=== PATIENT | female | born 1955 | race Caucasian/White ===

== ENCOUNTER 2019-07-03 16:58 | Emergency (ER) | payer SELFPAY ==
[~2019-07-03] VITALS: Ht 158 cm; Wt 44.0 kg
[~2019-07-03 16:58] MED LIST changes: -ASPI-999; -MONT10TA24
[2019-07-03] MEDS ORDERED: ASPI-999 (17:21)
[2019-07-03] MEDS ORDERED: MONT10TA24 (17:21)
--- NOTE | 2019-07-03 17:21 | ED Dyspnea ---
General Stated Complaint: PNEUMONIA Source of Information: Patient Exam Limitations: No Limitations History of Present Illness Date Seen by Provider: Jul 03, 2019 Time Seen by Provider: 17:18 Initial Comments To ER by private vehicle with reports of pneumonia. Patient saw [facility], in [facility] this morning for body aches and general malaise. She was given a pneumonia vaccine and started on cholesterol medication one week ago, there was concern for rhabdomyolysis, outpatient labs were ordered. Her CK was normal but she had a 20,000 white count. She had a chest x-ray showing a right lower lobe infiltrate. Her blood pressure in the clinic was 80 systolic, heart rate 120. She has a long-standing history of COPD, she does not wear oxygen at home. She does not feel any more short of breath than usual that she does have some right anterior lower chest wall pain for about a week and her reports that she seems to be breathing harder for one week Timing/Duration: 1 Week Severity: Moderate Activities at Onset: None Associated Symptoms: Cough Allergies and Home Medications Allergies Coded Allergies: No Known Drug Allergies (Unverified , 05/10/10) Patient Home Medication List Home Medication List Reviewed: Yes Review of Systems Review of Systems Constitutional: see HPI, malaise, weakness EENTM: see HPI Respiratory: see HPI, cough, short of breath (chronic and unchanged) Cardiovascular: no symptoms reported Genitourinary: no symptoms reported Musculoskeletal: no symptoms reported Skin: no symptoms reported Psychiatric/Neurological: No Symptoms Reported Endocrine: No Symptoms Reported Hematologic/Lymphatic: No Symptoms Reported Past Webtqne-Vujxco-Tjicvn Hx Patient Social History Recent Foreign Travel: No Contact w/Someone Who Travel: No Immunizations Up To Date Date of Influenza Vaccine: Jun 07, 2011 Past Medical History Reproductive Disorders: No Physical Exam Vital Signs Vital Signs - First Documented 07/03/19 07/03/19 17:03 17:25 Temp 36.6 Pulse 112 Resp 26 B/P (MAP) 96/66 (76) Pulse Ox 93 O2 Delivery Room Air O2 Flow Rate 1.00 Capillary Refill : Height, Weight, BMI Height: '" Weight: lbs. oz. kg; BMI Method:Stated General Appearance: No Apparent Distress, WD/WN, Thin HEENT: PERRL/EOMI, TMs Normal Neck: Full Range of Motion, Normal Inspection Respiratory: No Respiratory Distress, Accessory Muscle Use (chronic accessory muscle use, barrel chested. 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 [employer], her bleeding today appears the same as it did while she was employed at [employer] last year.) Cardiovascular: Normal Peripheral Pulses, Tachycardia Gastrointestinal: Normal Bowel Sounds, Non Tender, Soft Neurologic/Psychiatric: Alert, Oriented x3 Skin: Normal Color, Warm/Dry Focused Exam Lactate Level 07/03/19 17:15: Lactic Acid Level 0.70 Lactic Acid Level Laboratory Tests Test 07/03/19 17:15 Lactic Acid Level 0.70 MMOL/L (0.50-2.00) Progress/Results/Core Measures Results/Orders Lab Results Laboratory Tests Test 07/03/19 17:15 Range/Units White Blood Count 20.4 H 4.3-11.0 10^3/uL Red Blood Count 4.45 4.35-5.85 10^6/uL Hemoglobin 14.3 11.5-16.0 G/DL Hematocrit 41 35-52 % Mean Corpuscular Volume 92 80-99 FL Mean Corpuscular Hemoglobin 32 25-34 PG Mean Corpuscular Hemoglobin Concent 35 32-36 G/DL Red Cell Distribution Width 13.8 10.0-14.5 % Platelet Count 231 130-400 10^3/uL Mean Platelet Volume 9.5 7.4-10.4 FL Neutrophils (%) (Auto) 76 H 42-75 % Lymphocytes (%) (Auto) 16 12-44 % Monocytes (%) (Auto) 7 0-12 % Eosinophils (%) (Auto) 1 0-10 % Basophils (%) (Auto) 0 0-10 % Neutrophils # (Auto) 15.5 H 1.8-7.8 X 10^3 Lymphocytes # (Auto) 3.3 1.0-4.0 X 10^3 Monocytes # (Auto) 1.4 H 0.0-1.0 X 10^3 Eosinophils # (Auto) 0.1 0.0-0.3 10^3/uL Basophils # (Auto) 0.1 0.0-0.1 10^3/uL Neutrophils % (Manual) 76 % Lymphocytes % (Manual) 19 % Monocytes % (Manual) 5 % Blood Morphology Comment NORMAL D-Dimer 1.04 H 0.00-0.49 UG/ML Sodium Level 138 135-145 MMOL/L Potassium Level 4.1 3.6-5.0 MMOL/L Chloride Level 108 H 98-107 MMOL/L Carbon Dioxide Level 21 21-32 MMOL/L Anion Gap 9 5-14 MMOL/L Blood Urea Nitrogen 10 7-18 MG/DL Creatinine 0.73 0.60-1.30 MG/DL Estimat Glomerular Filtration Rate > 60 BUN/Creatinine Ratio 14 Glucose Level 84 70-105 MG/DL Lactic Acid Level 0.70 0.50-2.00 MMOL/L Calcium Level 9.5 8.5-10.1 MG/DL Corrected Calcium 9.5 8.5-10.1 MG/DL Total Bilirubin 0.6 0.1-1.0 MG/DL Aspartate Amino Transf (AST/SGOT) 13 5-34 U/L Alanine Aminotransferase (ALT/SGPT) 12 0-55 U/L Alkaline Phosphatase 78 40-136 U/L Total Protein 7.0 6.4-8.2 GM/DL Albumin 4.0 3.2-4.5 GM/DL My Orders Orders - [employer] Cbc With Automated Diff (07/03/19 17:00) Comprehensive Metabolic Panel (07/03/19 17:00) Blood Culture (07/03/19 17:00) Lactic Acid Analyzer (07/03/19 17:00) Fibrin Degradation Products (07/03/19 17:00) Chest 1 View, Ap/Pa Only (07/03/19 17:00) Ed Iv/Invasive Line Start (07/03/19 17:00) Ns Iv 1000 Ml (Sodium Chloride 0.9%) (07/03/19 17:30) Manual Differential (07/03/19 17:15) Ct Angio Chest W (07/03/19 17:51) Iohexol Injection (Omnipaque 350 Mg/Ml 1 (07/03/19 18:15) Received Contrast (Hold Metformin- Contr (07/03/19 18:15) Ns (Ivpb) (Sodium Chloride 0.9% Ivpb Bag (07/03/19 18:15) Piperacillin Sodium/Tazobactam (Zosyn Vi (07/03/19 18:45) Levofloxacin Tablet (Levaquin Tablet) (07/03/19 19:15) Medications Given in ED Current Medications Medications Dose Ordered Sig/Bela Route Start Time Stop Time Status Last Admin Dose Admin Iohexol 100 ml ONCE ONCE IV 07/03/19 18:15 07/03/19 18:16 DC 07/03/19 18:30 50 ML Piperacillin Sod/ Tazobactam Sod 4.5 gm/Sodium Chloride 100 ml @ 200 mls/hr ONCE ONCE IV 07/03/19 18:45 07/03/19 19:14 07/03/19 18:43 200 MLS/HR Sodium Chloride 100 ml ONCE ONCE IV 07/03/19 18:15 07/03/19 18:16 DC 07/03/19 18:30 80 ML Vital Signs/I&O 07/03/19 07/03/19 17:03 17:25 Temp 36.6 Pulse 112 Resp 26 B/P (MAP) 96/66 (76) Pulse Ox 93 95 O2 Delivery Room Air Nasal Cannula O2 Flow Rate 1.00 Diagnostic Imaging Diagonstic Imaging: Xray Plain Films/CT/US/NM/MRI: chest Comments NAME: KEV ALFARO Kurt MED REC#: [id number] PT STATUS: REG ER : 1955 PHYSICIAN: [employer] ADMIT DATE: 07/03/19/ER Draft POSDate of Exam:07/03/19 CHEST 1 VIEW, AP/PA ONLY EXAM: CHEST 1 VIEW, AP/PA ONLY. INDICATION: Right anterior chest pain. COMPARISON: 09/01/2011. FINDINGS: Normal heart size and central pulmonary vascularity. Hyperinflation. Calcified aorta. New airspace consolidation in the right lung base. No pleural effusion or pneumothorax. No acute osseous findings. IMPRESSION: New airspace consolidation in the right lung base. Recommend follow-up to resolution. Dictated on workstation # [id number] Dict: 07/03/19 1733 Trans: 07/03/19 1735 [facility] [id number] Interpreted by: ALINA GIRON MD Electronically signed by: Departure Communication (Admissions) We are on diversion here, no ICU beds available. I spoke with [facility] Dr. Browne who accepted the patient in transfer, would like Levaquin given in addition to the Zosyn for atypical coverage. The patient herself agrees to go to [place] but because of lack of insurance she refuses to be transported by EMS, states she will only go to her and drive her. I discussed with her the risks of that including worsening of condition in route, septic shock, , she states "oh well this bill would kill me anyway". She agrees to sign a refusal of services form. Impression Primary Impression: Pneumonia Qualified Codes: J18.1 - Lobar pneumonia, unspecified organism Additional Impressions: COPD exacerbation Sepsis Qualified Codes: A41.9 - Sepsis, unspecified organism Disposition: XFER SHT-TRM HOSP Condition: Stable Transfer Transfer Reason: Diversion Time Spoke to Accepting Phy: 19:13 Departure-Patient Inst. Referrals: NO,LOCAL PHYSICIAN (PCP/Family) Primary Care Physician [employer] Jul 03, 2019 17:21 POS
[2019-07-03 17:24] LABS: BASOPHILS # (AUTO) 0.1 10^3/uL (0.0-0.1); BASOPHILS % (AUTO) 0 % (0-10); EOSINOPHILS # (AUTO) 0.1 10^3/uL (0.0-0.3); EOSINOPHILS % (AUTO) 1 % (0-10); HEMATOCRIT 41 % (35-52); HEMOGLOBIN 14.3 G/DL (11.5-16.0); LYMPHOCYTES # (AUTO) 3.3 X 10^3 (1.0-4.0); LYMPHOCYTES % (AUTO) 16 % (12-44); MEAN CORPUSCULAR HEMOGLOBIN 32 PG (25-34); MEAN CORPUSCULAR HGB CONC 35 G/DL (32-36); MEAN CORPUSCULAR VOLUME 92 FL (80-99); MEAN PLATELET VOLUME 9.5 FL (7.4-10.4); MONOCYTES # (AUTO) 1.4 X 10^3 (0.0-1.0); MONOCYTES % (AUTO) 7 % (0-12); NEUTROPHILS # (AUTO) 15.5 X 10^3 (1.8-7.8); NEUTROPHILS % (AUTO) 76 % (42-75); PLATELET COUNT 231 10^3/uL (130-400); RED CELL DISTRIBUTION WIDTH 13.8 % (10.0-14.5); WHITE BLOOD COUNT 20.4 10^3/uL (4.3-11.0)
[2019-07-03] MEDS ORDERED: NS IV 1000 ML 1,000 ML IV SCH (17:30)
--- NOTE | 2019-07-03 17:35 | Diagnostic Imaging Report ---
EXAM: CHEST 1 VIEW, AP/PA ONLY. INDICATION: Right anterior chest pain. COMPARISON: 09/01/2011. FINDINGS: Normal heart size and central pulmonary vascularity. Hyperinflation. Calcified aorta. New airspace consolidation in the right lung base. No pleural effusion or pneumothorax. No acute osseous findings. IMPRESSION: New airspace consolidation in the right lung base. Recommend follow-up to resolution. Dictated by: Dictated on workstation # [id number]
[2019-07-03 17:44] LABS: ALANINE AMINOTRANSFERASE 12 U/L (0-55); ALKALINE PHOSPHATASE 78 U/L (40-136); BILIRUBIN,TOTAL 0.6 MG/DL (0.1-1.0); BUN/CREATININE RATIO 14; CALCIUM 9.5 MG/DL (8.5-10.1); CARBON DIOXIDE 21 MMOL/L (21-32); CHLORIDE 108 MMOL/L (98-107); CREATININE SERUM 0.73 MG/DL (0.60-1.30); GFR ESTIMATED > 60; GLUCOSE 84 MG/DL (70-105); POTASSIUM 4.1 MMOL/L (3.6-5.0); SODIUM 138 MMOL/L (135-145)
[2019-07-03 17:48] LABS: LYMPHOCYTES % (MANUAL) 19 %; MONOCYTES % (MANUAL) 5 %; NEUTROPHILS % (MANUAL) 76 %; RBC MORPH NORMAL
[2019-07-03] MEDS ORDERED: HOLD METFORMIN - RECEIVED CONTRAST 20 ML VIAL IV SCH (18:15)
[2019-07-03] MEDS ORDERED: IOHEXOL 350 MG/ML 100 ML (OMNIPAQUE 350) VIAL IV ONE (18:15)
[2019-07-03] MEDS ORDERED: NS 100 ML (IVPB) BAG IV ONE (18:15)
--- NOTE | 2019-07-03 18:42 | Diagnostic Imaging Report ---
PROCEDURE: CT angiography of the chest with contrast. TECHNIQUE: Multiple contiguous axial images were obtained through the chest after uneventful bolus administration of intravenous contrast. 3D reconstructed CTA MIP acquisitions were also performed. Auto Exposure Controls were utilized during the CT exam to meet ALARA standards for radiation dose reduction. INDICATION: Pneumonia, aching all over. COMPARISON STUDY: Chest radiograph from earlier today. CT scan of the abdomen from 2010. FINDINGS: The heart size is normal. No pleural or pericardial effusions are identified. There is no abnormal adenopathy. Arterial sclerosis is present without any significant stenosis of the aorta or great vessels. No significant calcifications are seen in the coronary arteries. No large or central pulmonary emboli are present. Smaller vessels are not well opacified. Infiltrates are present in the base of the right middle lobe and also within the posterior aspect of the right lower lobe. Moderate infiltrates are present in the left lung base which is partially atelectasis. These are fairly confluent, and follow-up exam to exclude an underlying mass within these is recommended. Visualized portions of the abdomen appear unremarkable. The osseous structures demonstrate minimal degenerative changes. IMPRESSION: 1. COPD changes are present with bilateral pulmonary infiltrates, right greater than left. These are mainly in the lung bases and greatest in the base of the right middle lobe. Recommend follow-up radiograph to exclude a mass within the areas of infiltrates. 2. There is mild arterial sclerosis. Dictated by: Dictated on workstation # [id number]
[2019-07-03] MEDS ORDERED: PIPERACILLIN SODIUM/TAZOBACTAM 4.5 GM in NS (IVPB) 100 ML IV ONE (18:45)
[2019-07-03] MEDS ORDERED: LEVOFLOXACIN 750 MG TAB (LEVAQUIN) PO ONE (19:15)
[2019-07-03 19:45] VITALS: BP 103/64
== END 2019-07-03 19:45 | disposition short-term general hospital (02) ==
LOC: EDUNIT# 16:58 → ER 17:00
DX: A41.9 Sepsis, unspecified organism (principal); J18.9 Pneumonia, unspecified organism; J44.1 Chronic obstructive pulmonary disease with (acute) exacerbation; J44.0 Chronic obstructive pulmonary disease with (acute) lower respiratory infection
CPT/HCPCS: 36415; 71045; 71275; 80053; 83605; 85007; 85027; 85379; 87040; 96361; 96365

== ENCOUNTER → 2019-07-03 | Outpatient (CLI) | payer OTHER ==
[~2019-07-03] MED LIST: ASPI-999; CIPR500S2 PO; LORA-794 PO; MECL-124 PO; METR500T PO; MONT10TA24; NAPR-243 PO
[2019-07-03 13:34] LABS: BASOPHILS # (AUTO) 0.1 10^3/uL (0.0-0.1); BASOPHILS % (AUTO) 0 % (0-10); EOSINOPHILS # (AUTO) 0.1 10^3/uL (0.0-0.3); EOSINOPHILS % (AUTO) 0 % (0-10); HEMATOCRIT 43 % (35-52); HEMOGLOBIN 14.8 G/DL (11.5-16.0); LYMPHOCYTES # (AUTO) 3.1 X 10^3 (1.0-4.0); LYMPHOCYTES % (AUTO) 14 % (12-44); MEAN CORPUSCULAR HEMOGLOBIN 31 PG (25-34); MEAN CORPUSCULAR HGB CONC 35 G/DL (32-36); MEAN CORPUSCULAR VOLUME 91 FL (80-99); MEAN PLATELET VOLUME 9.3 FL (7.4-10.4); MONOCYTES # (AUTO) 1.5 X 10^3 (0.0-1.0); MONOCYTES % (AUTO) 7 % (0-12); NEUTROPHILS % (AUTO) 79 % (42-75); PLATELET COUNT 240 10^3/uL (130-400); RED CELL DISTRIBUTION WIDTH 14.1 % (10.0-14.5); WHITE BLOOD COUNT 22.8 10^3/uL (4.3-11.0)
[2019-07-03 13:53] LABS: ALANINE AMINOTRANSFERASE 12 U/L (0-55); ALBUMIN 4.1 GM/DL (3.2-4.5); ALKALINE PHOSPHATASE 79 U/L (40-136); BILIRUBIN,TOTAL 0.6 MG/DL (0.1-1.0); BUN/CREATININE RATIO 13; CALCIUM 9.6 MG/DL (8.5-10.1); CARBON DIOXIDE 23 MMOL/L (21-32); CHLORIDE 107 MMOL/L (98-107); CREATINE KINASE 87 U/L (29-168); CREATININE SERUM 0.79 MG/DL (0.60-1.30); GFR ESTIMATED > 60; GLUCOSE 93 MG/DL (70-105); PHOSPHORUS 2.8 MG/DL (2.3-4.7); POTASSIUM 4.2 MMOL/L (3.6-5.0); SODIUM 139 MMOL/L (135-145); TOTAL PROTEIN 7.1 GM/DL (6.4-8.2); URIC ACID 3.2 MG/DL (2.6-7.2)
[2019-07-03 14:00] LABS: BAND NEUTROPHILS 2 %; BASOPHILS % (MANUAL) 0 %; EOSINOPHILS % (MANUAL) 0 %; LYMPHOCYTES % (MANUAL) 17 %; MONOCYTES % (MANUAL) 5 %; NEUTROPHILS % (MANUAL) 76 %; RBC MORPH NORMAL
== END ==
LOC: LAB 13:07
PROVIDERS: ATTEND Nurse Practitioner Family
DX: M79.10 Myalgia, unspecified site (principal)
CPT/HCPCS: 36415; 80053; 82550; 84100; 84550; 85007; 85027

== ENCOUNTER 2022-02-16 15:49 | Emergency (ER) | payer MEDICAID, OTHER ==
[~2022-02-16] VITALS: Ht 152 cm; Wt 34.9 kg
[~2022-02-16 15:49] MED LIST changes: +ASPI-999; +MONT-40
--- NOTE | 2022-02-16 16:25 | ED Cough/URI ---
General Chief Complaint: Respiratory Problems Stated Complaint: SOB Nursing Triage Note: SENT OVER FROM DR SARAVIA FOR SOA AND BACK PAIN. PT HAS A HX OF COPD AND PNEUMONIA. Source: patient Exam Limitations: no limitations History of Present Illness Date Seen by Provider: Feb 16, 2022 Time Seen by Provider: 16:20 Initial Comments Patient is a 66-year-old female with a history of COPD who presents the ED with back pain, shortness of breath. Patient states yesterday evening she started having episode of shortness of breath difficulty breathing. This lasted about an hour. Typically occurs when she becomes anxious or after she takes a medication to help with her weight gain. She felt some shortness of breath today went to her primary care physician Dr. Saravia she was complaining of back pain and shortness of breath. Was given a steroid shot and a breathing treatment and was sent to the ED for further evaluation. Patient reports some mild chest discomfort but denies of any worsening pains. She states she has intermittent chest pain with no history of coronary artery disease, CHF. She is mainly complaining of her mid back pain secondary to her coughing fit last night. She does use Spiriva, Symbicort and nebulizer treatments at home. She has had similar episodes in the past but concern for possible pneumonia. Denies fever, chills, nausea vomiting, diarrhea. She denies of any specific cough. Patient wears 2 L of oxygen at home daily. Allergies and Home Medications Allergies Coded Allergies: No Known Drug Allergies (Unverified , 05/10/10) Patient Home Medication List Home Medication List Reviewed: Yes Aspirin (Aspirin) 81 Mg Tab.chew, (Reported) Entered as Reported by: PATEL MORRISON on 07/03/191720 Azithromycin (Azithromycin) 250 Mg Tablet, 250 MG PO UD Prescribed by: GURWINDER GONZALEZ on 02/16/22 174 Montelukast Sodium (Montelukast Sodium) 10 Mg Tablet, (Reported) Entered as Reported by: PATEL MORRISON on 07/03/191720 Prednisone (Prednisone) 20 Mg Tab, 20 MG PO DAILY Prescribed by: GURWINDER GONZALEZ on 02/16/22 1740 Review of Systems Review of Systems Constitutional: No chills, No diaphoresis, No malaise, No weakness EENTM: No blurred vision Respiratory: No cough; short of breath Cardiovascular: chest pain Gastrointestinal: No abdominal pain, No diarrhea, No nausea, No vomiting Genitourinary: No decreased output, No discharge Musculoskeletal: back pain; No joint pain Skin: No change in color, No change in hair/nails All Other Systems Reviewed Negative Unless Noted: Yes Past Asltkbu-Mqbbom-Vtaixs Hx Patient Social History Tobacco Use?: Yes Tobacco type used: Cigarettes Smoking Status: Current Everyday Smoker Substance use?: No Alcohol Use?: No Pt feels they are or have been: Unable to obtain Immunizations Up To Date Tetanus Booster (TDap): Unknown Influenza Vaccine Up-to-Date: No; Not Current Seasonal Allergies Seasonal Allergies: Yes Past Medical History Surgeries: Yes Hysterectomy Respiratory: Yes Pneumonia, COPD Cardiac: Yes High Cholesterol Neurological: No Reproductive Disorders: No 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 oz. kg; 15.00 BMI Method:Stated General Appearance: WD/WN, no apparent distress Eyes: Bilateral Eye Normal Inspection, Bilateral Eye PERRL, Bilateral Eye EOMI, Bilateral Eye Abnormal EOM HEENT: PERRL/EOMI, normal ENT inspection, TMs normal, pharynx normal Neck: non-tender, full range of motion, supple Respiratory: chest non-tender, no respiratory distress, no accessory muscle use, wheezing Cardiovascular: regular rate, rhythm, no edema, no gallop, no JVD Gastrointestinal: normal bowel sounds, non tender, soft, no organomegaly Extremities: normal range of motion, non-tender, normal inspection, no pedal edema Neurologic/Psychiatric: credit rating checker II-XII nml as tested Bilateral thoracic paraspinal muscle tenderness. No thoracic, lumbar midline tenderness Progress/Results/Core Measures Suspected Sepsis SIRS Temperature: Pulse: 98 Respiratory Rate: 16 Laboratory Tests 02/16/22 16:30: White Blood Count 11.8H Blood Pressure 147 /76 Mean: 99 Laboratory Tests 02/16/22 16:30: Creatinine 0.70, Platelet Count 274, Total Bilirubin 0.5 Results/Orders Lab Results Laboratory Tests Test 02/16/22 16:30 02/16/22 16:35 Range/Units White Blood Count 11.8 H 4.3-11.0 10^3/uL Red Blood Count 4.58 3.80-5.11 10^6/uL Hemoglobin 14.3 11.5-16.0 g/dL Hematocrit 41 35-52 % Mean Corpuscular Volume 90 80-99 fL Mean Corpuscular Hemoglobin 31 25-34 pg Mean Corpuscular Hemoglobin Concent 35 32-36 g/dL Red Cell Distribution Width 13.2 10.0-14.5 % Platelet Count 274 130-400 10^3/uL Mean Platelet Volume 9.1 9.0-12.2 fL Immature Granulocyte % (Auto) 0 % Neutrophils (%) (Auto) 78 H 42-75 % Lymphocytes (%) (Auto) 15 12-44 % Monocytes (%) (Auto) 5 0-12 % Eosinophils (%) (Auto) 1 0-10 % Basophils (%) (Auto) 1 0-10 % Neutrophils # (Auto) 9.2 H 1.8-7.8 10^3/uL Lymphocytes # (Auto) 1.8 1.0-4.0 10^3/uL Monocytes # (Auto) 0.6 0.0-1.0 10^3/uL Eosinophils # (Auto) 0.1 0.0-0.3 10^3/uL Basophils # (Auto) 0.1 0.0-0.1 10^3/uL Immature Granulocyte # (Auto) 0.1 0.0-0.1 10^3/uL Sodium Level 136 135-145 MMOL/L Potassium Level 4.0 3.6-5.0 MMOL/L Chloride Level 102 98-107 MMOL/L Carbon Dioxide Level 23 21-32 MMOL/L Anion Gap 11 5-14 MMOL/L Blood Urea Nitrogen 13 7-18 MG/DL Creatinine 0.70 0.60-1.30 MG/DL Estimat Glomerular Filtration Rate 97 BUN/Creatinine Ratio 19 Glucose Level 100 70-105 MG/DL Calcium Level 9.3 8.5-10.1 MG/DL Corrected Calcium 9.1 8.5-10.1 MG/DL Total Bilirubin 0.5 0.1-1.0 MG/DL Aspartate Amino Transf (AST/SGOT) 18 5-34 U/L Alanine Aminotransferase (ALT/SGPT) 18 0-55 U/L Alkaline Phosphatase 46 40-136 U/L Troponin I < 0.028 <0.028 NG/ML B-Type Natriuretic Peptide 20.4 <100.0 PG/ML Total Protein 7.0 6.4-8.2 GM/DL Albumin 4.3 3.2-4.5 GM/DL Influenza Type A (RT-PCR) Not Detected Not Detecte Influenza Type B (RT-PCR) Not Detected Not Detecte SARS-CoV-2 RNA (RT-PCR) Not Detected Not Detecte My Orders Orders - HAILEY PITTMAN Cbc With Automated Diff (02/16/22 16:18) Comprehensive Metabolic Panel (02/16/22 16:18) Bnp [place] (02/16/22 16:18) Troponin I [place] (02/16/22 16:18) Covid 19 Inhouse Test (02/16/22 16:18) Influenza A And B By Pcr (02/16/22 16:18) Iv/Invasive Line Insertion .IV start (02/16/22 16:18) Ekg Tracing (02/16/22 16:18) Chest 1 View, Ap/Pa Only (02/16/22 16:18) Vital Signs/I&O 02/16/22 02/16/22 02/16/22 15:50 16:00 16:00 Temp 36.3 Pulse 98 Resp 16 B/P (MAP) 147/76 (99) Pulse Ox 92 97 O2 Delivery Nasal Cannula Nasal Cannula Nasal Cannula O2 Flow Rate 2.00 2.00 2.00 Capillary Refill : Less Than 3 Seconds Blood Pressure Mean: 99 ECG Comment Sinus rhythm, right bundle branch block, 88 bpm, QRS duration 125 MS, QTc 408 MS Departure Communication (PCP) Patient on arrival in no acute respiratory distress. 2 L chronically currently at 95%. No current chest pain. EKG shows sinus rhythm with right bundle branch block. Cardiac work-up unremarkable. She is not hypoxic or tachycardic. She is complaining of back pain after a episode of shortness of breath and difficulty catching her breath last night. She has had similar episodes in the past according to family. They believe this is secondary to her getting anxious when she gets these episodes causing her to have difficulty breathing. She went to her primary care was given a steroid shot and a DuoNeb breathing treatment with significant provement. She does have a nebulizer at home. Her chest x-ray was negative for pneumonia. Lab work was otherwise unremarkable. She had no current changes in her breathing during her stay. Due to her reassuring lab work, negative chest x-ray improvement of breathing patient will be discharged. Continue with your nebulizer treatment. We will discharge azithromycin prophylactically for her COPD exacerbation and short burst steroids for 4 days. She states steroids tend to improve her symptoms. Continue with nebulizer breathing treatments. Follow-up your PCP in 2 to 3 days for reevaluation. If any worsening symptoms return back to ED for further evaluation. Patient was not tachypneic. She states she has had similar pain in her back after coughing. She states she may have panic secondary to not able to breathe last night. Impression Primary Impression: COPD exacerbation Disposition: HOME, SELF-CARE Condition: Stable Departure-Patient Inst. Decision time for Depature: 17:39 Referrals: NO,LOCAL PHYSICIAN (PCP) Primary Care Physician ANJELICA SARAVIA MD Patient Instructions: COPD Exacerbation, Adult ED Add. Discharge Instructions: If any worsening symptoms return back to ED for further evaluation All discharge instructions reviewed with patient and/or family. Voiced understanding. Scripts Azithromycin (Azithromycin) 250 Mg Tablet 250 MG PO UD, #6 TAB TAKE 2 TABLETS ON DAY ONE THEN TAKE 1 TABLET DAILY FOR FOUR MORE DAYS Prov: HAILEY PITTMAN 02/16/22 Prednisone (Prednisone) 20 Mg Tab 20 MG PO DAILY for 4 Days, #4 TAB Take 3 tabs(60mg)daily, decrease by 1/2 tab(10mg)daily. Prov: HAILEY PITTMAN 02/16/22 HAILEY PITTMAN Feb 16, 2022 16:25
[2022-02-16 16:41] LABS: BASOPHILS # (AUTO) 0.1 10^3/uL (0.0-0.1); BASOPHILS % (AUTO) 1 % (0-10); EOSINOPHILS # (AUTO) 0.1 10^3/uL (0.0-0.3); EOSINOPHILS % (AUTO) 1 % (0-10); HEMATOCRIT 41 % (35-52); HEMOGLOBIN 14.3 g/dL (11.5-16.0); LYMPHOCYTES # (AUTO) 1.8 10^3/uL (1.0-4.0); LYMPHOCYTES % (AUTO) 15 % (12-44); MEAN CORPUSCULAR HEMOGLOBIN 31 pg (25-34); MEAN CORPUSCULAR HGB CONC 35 g/dL (32-36); MEAN CORPUSCULAR VOLUME 90 fL (80-99); MEAN PLATELET VOLUME 9.1 fL (9.0-12.2); MONOCYTES # (AUTO) 0.6 10^3/uL (0.0-1.0); MONOCYTES % (AUTO) 5 % (0-12); NEUTROPHILS # (AUTO) 9.2 10^3/uL (1.8-7.8); NEUTROPHILS % (AUTO) 78 % (42-75); PLATELET COUNT 274 10^3/uL (130-400); WHITE BLOOD COUNT 11.8 10^3/uL (4.3-11.0)
--- NOTE | 2022-02-16 16:44 | Diagnostic Imaging Report ---
INDICATION: Shortness of breath. EXAMINATION: Portable chest at 4:29 p.m. FINDINGS: There are emphysematous changes in the lungs with air trapping. There are no infiltrates, effusions, or pneumothoraces. IMPRESSION: No acute abnormalities in the chest. Dictated by: Dictated on workstation # [id number]
[2022-02-16 16:50] LABS: ALBUMIN 4.3 GM/DL (3.2-4.5); CHLORIDE 102 MMOL/L (98-107); SODIUM 136 MMOL/L (135-145)
[2022-02-16 16:51] LABS: CALCIUM 9.3 MG/DL (8.5-10.1)
[2022-02-16 16:52] LABS: GLUCOSE 100 MG/DL (70-105)
[2022-02-16 16:54] LABS: BILIRUBIN,TOTAL 0.5 MG/DL (0.1-1.0); CARBON DIOXIDE 23 MMOL/L (21-32)
[2022-02-16 16:56] LABS: ALKALINE PHOSPHATASE 46 U/L (40-136); GFR ESTIMATED 97
[2022-02-16 16:57] LABS: BUN/CREATININE RATIO 19
[2022-02-16 16:59] LABS: ALANINE AMINOTRANSFERASE 18 U/L (0-55)
[2022-02-16] MEDS ORDERED: PRD20T PO (17:40)
[2022-02-16] MEDS ORDERED: AZIT250T12 PO (17:40)
[2022-02-16 17:53] VITALS: BP 104/60
== END 2022-02-16 17:53 | disposition home or self-care (01) ==
LOC: EDUNIT# 15:49 → ER 15:51
DX: J44.1 Chronic obstructive pulmonary disease with (acute) exacerbation (principal); I45.10 Unspecified right bundle-branch block; F17.210 Nicotine dependence, cigarettes, uncomplicated; Z20.822 Contact with and (suspected) exposure to COVID-19; Z99.81 Dependence on supplemental oxygen; Z79.52 Long term (current) use of systemic steroids; Z87.01 Personal history of pneumonia (recurrent); Z79.899 Other long term (current) drug therapy
CPT/HCPCS: 36415; 71045; 80053; 83880; 84484; 85025; 87636; 93005

== ENCOUNTER 2022-07-14 13:29 | Emergency (ER) | payer MEDICARE, OTHER ==
[~2022-07-14] VITALS: Ht 152 cm; Wt 36.5 kg
[~2022-07-14 13:29] MED LIST changes: +AZIT250T12 PO; +PRD20T PO
--- NOTE | 2022-07-14 13:42 | ED Respiratory ---
General Chief Complaint: Respiratory Problems Stated Complaint: SOB Source: patient Exam Limitations: no limitations History of Present Illness Date Seen by Provider: Jul 14, 2022 Time Seen by Provider: 13:40 Initial Comments 67-year-old female presents the emergency department today for 3 days of shortness of breath. She has end-stage COPD, is on 2 to 3 L of oxygen via nasal cannula [id number]. She was seen by her primary doctor on Monday and told it was a "head cold." Since then she has had progressively worsening shortness of breath. She is been using nebulizers at home without any relief. She is on 5 mg of prednisone p.o. daily. Denies any fevers or chills. No change in her chronic productive cough. No chest pain. Allergies and Home Medications Allergies Coded Allergies: No Known Drug Allergies (Unverified , 05/10/10) Patient Home Medication List Home Medication List Reviewed: Yes Aspirin (Aspirin) 81 Mg Tab.chew, (Reported) Entered as Reported by: PATEL MORRISON on 07/03/19 1721 Azithromycin (Azithromycin) 250 Mg Tablet, 250 MG PO UD Prescribed by: GURWINDER GONZALEZ on 02/16/22 1740 Montelukast Sodium (Montelukast Sodium) 10 Mg Tablet, (Reported) Entered as Reported by: PATEL MORRISON on 07/03/19 172 Prednisone (Prednisone) 20 Mg Tab, 20 MG PO DAILY Prescribed by: GURWINDER GONZALEZ on 02/16/22 1740 Review of Systems Review of Systems Constitutional: no symptoms reported EENTM: no symptoms reported Respiratory: cough, short of breath Cardiovascular: no symptoms reported Gastrointestinal: no symptoms reported Genitourinary: no symptoms reported Musculoskeletal: no symptoms reported Skin: no symptoms reported Psychiatric/Neurological: No Symptoms Reported Hematologic/Lymphatic: No Symptoms Reported Immunological/Allergic: no symptoms reported Past Pihafts-Xxlncp-Ssgxkk Hx Patient Social History Tobacco Use?: Yes Use of E-Cig and/or Vaping dev: No Substance use?: Yes Substance type: Amphetamines Alcohol Use?: No Immunizations Up To Date Tetanus Booster (TDap): Unknown Seasonal Allergies Seasonal Allergies: Yes Past Medical History Surgeries: Yes Hysterectomy Respiratory: Yes Pneumonia, COPD Cardiac: Yes High Cholesterol Neurological: No 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 oz. kg; 15.00 BMI Method:Stated General Appearance: WD/WN, no apparent distress HEENT: normal ENT inspection, pharynx normal Neck: non-tender, supple Respiratory: chest non-tender, no respiratory distress, no accessory muscle use, other (Lungs are tight bilaterally. Significant expiratoryWheezing bilaterally.) Cardiovascular: regular rate, rhythm, no murmur Gastrointestinal: normal bowel sounds, non tender, soft, no organomegaly Extremities: normal range of motion, non-tender, normal inspection, no pedal edema, no calf tenderness, normal capillary refill Neurologic/Psychiatric: alert, normal mood/affect, oriented x 3 Skin: normal color, warm/dry Lymphatic: no adenopathy Progress/Results/Core Measures Suspected Sepsis SIRS Temperature: Pulse: Respiratory Rate: Laboratory Tests 07/14/22 14:13: White Blood Count 13.3H Blood Pressure / Mean: Laboratory Tests 07/14/22 14:13: Creatinine 0.72, Platelet Count 268, Total Bilirubin 0.4 Results/Orders Lab Results Laboratory Tests Test 07/14/22 13:50 07/14/22 14:13 Range/Units Influenza Type A (RT-PCR) Not Detected Not Detecte Influenza Type B (RT-PCR) Not Detected Not Detecte SARS-CoV-2 RNA (RT-PCR) Not Detected Not Detecte White Blood Count 13.3 H 4.3-11.0 10^3/uL Red Blood Count 4.53 3.80-5.11 10^6/uL Hemoglobin 14.3 11.5-16.0 g/dL Hematocrit 41 35-52 % Mean Corpuscular Volume 91 80-99 fL Mean Corpuscular Hemoglobin 32 25-34 pg Mean Corpuscular Hemoglobin Concent 35 32-36 g/dL Red Cell Distribution Width 13.2 10.0-14.5 % Platelet Count 268 130-400 10^3/uL Mean Platelet Volume 8.9 L 9.0-12.2 fL Immature Granulocyte % (Auto) 0 % Neutrophils (%) (Auto) 86 H 42-75 % Lymphocytes (%) (Auto) 8 L 12-44 % Monocytes (%) (Auto) 5 0-12 % Eosinophils (%) (Auto) 0 0-10 % Basophils (%) (Auto) 0 0-10 % Neutrophils # (Auto) 11.4 H 1.8-7.8 10^3/uL Lymphocytes # (Auto) 1.1 1.0-4.0 10^3/uL Monocytes # (Auto) 0.7 0.0-1.0 10^3/uL Eosinophils # (Auto) 0.0 0.0-0.3 10^3/uL Basophils # (Auto) 0.1 0.0-0.1 10^3/uL Immature Granulocyte # (Auto) 0.1 0.0-0.1 10^3/uL Neutrophils % (Manual) 84 % Lymphocytes % (Manual) 7 % Monocytes % (Manual) 5 % Eosinophils % (Manual) 1 % Reactive Lymphocytes 3 % Toxic Granulation 2+ Stomatocytes MODERATE Sodium Level 138 135-145 MMOL/L Potassium Level 4.5 3.6-5.0 MMOL/L Chloride Level 105 98-107 MMOL/L Carbon Dioxide Level 21 21-32 MMOL/L Anion Gap 12 5-14 MMOL/L Blood Urea Nitrogen 11 7-18 MG/DL Creatinine 0.72 0.60-1.30 MG/DL Estimat Glomerular Filtration Rate 93 BUN/Creatinine Ratio 15 Glucose Level 103 70-105 MG/DL Calcium Level 9.9 8.5-10.1 MG/DL Corrected Calcium 9.7 8.5-10.1 MG/DL Total Bilirubin 0.4 0.1-1.0 MG/DL Aspartate Amino Transf (AST/SGOT) 21 5-34 U/L Alanine Aminotransferase (ALT/SGPT) 26 0-55 U/L Alkaline Phosphatase 58 40-136 U/L Total Protein 6.9 6.4-8.2 GM/DL Albumin 4.3 3.2-4.5 GM/DL My Orders Orders - SHEREENCED DO Albuterol/Ipra Inhalation Soln (Duoneb I (07/14/22 13:45) Prednisone Tablet (Deltasone Tablet) (07/14/22 13:45) Ekg Tracing (07/14/22 13:37) Chest 1 View, Ap/Pa Only (07/14/22 13:37) Comprehensive Metabolic Panel (07/14/22 13:51) Cbc With Automated Diff (07/14/22 13:51) Manual Differential (07/14/22 14:13) Prednisone Tablet (Deltasone Tablet) (07/14/22 14:45) Albuterol/Ipra Inhalation Soln (Duoneb I (07/14/22 14:45) Influenza A And B By Pcr (07/14/22 15:09) Covid 19 Inhouse Test (07/14/22 15:09) Albuterol Pre-Mix Nebs (Rt) (Proventil (07/14/22 15:30) Svn Small Volume Nebulizer (07/14/22 15:24) Medications Given in ED Current Medications Medications Dose Ordered Sig/Bela Route Start Time Stop Time Status Last Admin Dose Admin Albuterol Sulfate 2.5 mg ONCE ONCE INH 07/14/22 15:30 07/14/22 15:31 DC 07/14/22 15:30 2.5 MG Albuterol/ Ipratropium 3 ml ONCE ONCE INH 07/14/22 14:45 07/14/22 14:46 DC 07/14/22 14:53 3 ML Prednisone 50 mg ONCE ONCE PO 07/14/22 14:45 07/14/22 14:46 DC 07/14/22 14:37 50 MG Vital Signs/I&O 07/14/22 07/14/22 13:40 13:40 Temp 36.7 Pulse 100 Resp 24 B/P (MAP) 110/78 (89) Pulse Ox 94 O2 Delivery Nasal Cannula Nasal Cannula O2 Flow Rate 2.00 2.00 Capillary Refill : Departure Communication (Admissions) Patient indicated she was feeling somewhat better after initial breathing treatment. She is given 1 morning treatment states she is feeling back to her baseline with regard to respiratory status. She is on her home oxygen requirement, not requiring anything additional. Oxygen saturations 94 to 96% on this. Chest x-ray shows no evidence for pneumonia or any other indication for antibiotics. No stigmata of PE. No indication this is from ACS or cardiac origin. She be discharged home in stable condition with close follow-up. COVID and flu testing were negative. Impression Primary Impression: COPD exacerbation Disposition: 01 HOME, SELF-CARE Condition: Stable Departure-Patient Inst. Referrals: ANJELICA SARAVIA MD (PCP/Family) Primary Care Physician Add. Discharge Instructions: Take the prednisone as prescribed until it is gone. Use your inhalers as previously prescribed at home. Do not take your 5 mg of prednisone while taking the additional dose but resume this once the current prescription is gone. All discharge instructions reviewed with patient and/or family. Voiced understanding. Scripts Prednisone (Prednisone) 50 Mg Tab 50 MG PO DAILY for 5 Days, #5 TAB Prov: CED REGAN DO 07/14/22 CED REGAN DO Jul 14, 2022 13:42
[2022-07-14] MEDS ORDERED: predniSONE 20 MG TAB PO ONE ×2 (13:45→14:45)
[2022-07-14] MEDS ORDERED: RT-ALBUTEROL/IPRATROPIUM 3 ML (DUONEB) VIAL INH ONE ×2 (13:45→14:45)
--- NOTE | 2022-07-14 14:05 | Diagnostic Imaging Report ---
EXAMINATION: Chest 1 view HISTORY: dyspnea, CP COMPARISON: 02/16/2022 FINDINGS: Heart size and pulmonary vasculature are normal. Linear opacities within the right lung base, unchanged from prior exam likely atelectasis or scarring. No pleural effusion or pneumothorax. The osseous structures are intact. IMPRESSION: 1. No acute radiographic abnormality in the chest. Dictated by: Dictated on workstation # [id number]
[2022-07-14 14:17] LABS: BASOPHILS # (AUTO) 0.1 10^3/uL (0.0-0.1); BASOPHILS % (AUTO) 0 % (0-10); EOSINOPHILS % (AUTO) 0 % (0-10); HEMATOCRIT 41 % (35-52); HEMOGLOBIN 14.3 g/dL (11.5-16.0); LYMPHOCYTES # (AUTO) 1.1 10^3/uL (1.0-4.0); LYMPHOCYTES % (AUTO) 8 % (12-44); MEAN CORPUSCULAR HEMOGLOBIN 32 pg (25-34); MEAN CORPUSCULAR HGB CONC 35 g/dL (32-36); MEAN CORPUSCULAR VOLUME 91 fL (80-99); MEAN PLATELET VOLUME 8.9 fL (9.0-12.2); MONOCYTES # (AUTO) 0.7 10^3/uL (0.0-1.0); MONOCYTES % (AUTO) 5 % (0-12); NEUTROPHILS # (AUTO) 11.4 10^3/uL (1.8-7.8); NEUTROPHILS % (AUTO) 86 % (42-75); PLATELET COUNT 268 10^3/uL (130-400); WHITE BLOOD COUNT 13.3 10^3/uL (4.3-11.0)
[2022-07-14 14:26] LABS: ALBUMIN 4.3 GM/DL (3.2-4.5); POTASSIUM 4.5 MMOL/L (3.6-5.0)
[2022-07-14 14:27] LABS: CALCIUM 9.9 MG/DL (8.5-10.1)
[2022-07-14 14:29] LABS: TOTAL PROTEIN 6.9 GM/DL (6.4-8.2)
[2022-07-14 14:31] LABS: BILIRUBIN,TOTAL 0.4 MG/DL (0.1-1.0)
[2022-07-14 14:32] LABS: CREATININE SERUM 0.72 MG/DL (0.60-1.30)
[2022-07-14 14:54] LABS: EOSINOPHILS % (MANUAL) 1 %; LYMPHOCYTES % (MANUAL) 7 %; MONOCYTES % (MANUAL) 5 %; NEUTROPHILS % (MANUAL) 84 %; REACTIVE LYMPHOCYTES 3 %; TOXIC GRANULATION/VACUOLAZATIO 2+
[2022-07-14 14:55] LABS: STOMATOCYTES MODERATE
[2022-07-14] MEDS ORDERED: RT-ALBUTEROL SULF 2.5 MG/3 ML PRE-MIX VIAL INH ONE (15:30)
[2022-07-14] MEDS ORDERED: PRD50T PO (15:53)
[2022-07-14 16:00] VITALS: BP 108/84
== END 2022-07-14 16:00 | disposition home or self-care (01) ==
LOC: EDUNIT# 13:29 → ER 13:32
DX: J44.1 Chronic obstructive pulmonary disease with (acute) exacerbation (principal); Z72.0 Tobacco use; Z20.822 Contact with and (suspected) exposure to COVID-19
CPT/HCPCS: 36415; 71045; 80053; 85007; 85027; 87636; 94640

== ENCOUNTER → 2022-07-20 | Outpatient (CLI) | payer MEDICARE, OTHER ==
[~2022-07-20] MED LIST changes: +PRD50T PO
== END ==
LOC: PREOP 10:56
PROVIDERS: ATTEND Specialist
DX: Z01.818 Encounter for other preprocedural examination (principal); H25.12 Age-related nuclear cataract, left eye

== ENCOUNTER → 2022-08-04 | Outpatient (CLI) | payer MEDICARE ==
[~2022-08-04] MED LIST changes: +CEFU500T63 PO
== END | disposition home or self-care (01) ==
LOC: PREOP 06:43
PROVIDERS: ATTEND Specialist
DX: Z01.818 Encounter for other preprocedural examination (principal)

== ENCOUNTER 2022-08-05 12:37 | Emergency (ER) | payer MEDICARE, OTHER ==
[~2022-08-05] VITALS: Ht 152 cm; Wt 35.8 kg
[~2022-08-05 12:37] MED LIST changes: -CEFU500T63 PO
[2022-08-05] MEDS ORDERED: methylPREDNISolone 125 MG (Solu-MEDROL) VIAL IV STA (12:49)
--- NOTE | 2022-08-05 12:52 | ED Chest Pain ---
General Chief Complaint: Chest Pain Stated Complaint: CHEST PAINS | COPD Source: patient Exam Limitations: no limitations History of Present Illness Date Seen by Provider: Aug 05, 2022 Time Seen by Provider: 12:52 Initial Comments 67-year-old female presents with chest pain and shortness of air starting this morning around 7 AM, patient states she was just sitting when it started. Describes the chest pain as stabbing in the midsternal/epigastric area. States the pain is intermittent. Also complains of lips tingling which has been going on for a while. Complains of back pain starting in the lower back all the way up to the shoulders. States she was recently admitted to [place] for COPD exacerbation, was there for 3 days and discharged on Monday. Discharged on short burst dose of prednisone 20 mg, which she has completed. States she had a CT of her chest which showed an aneurysm in her abdomen, is supposed to have another scan next Monday to evaluate the aneurysm. States she is very anxious about the aneurysm, and thinks that some of her symptoms may be due to anxiety. States she takes 5 mg of prednisone daily, used her inhalers, and had 1 breathing treatment this morning approximately 4 hours prior to arrival. Denies fevers/chills, abdominal pain, nausea/vomiting. Allergies and Home Medications Allergies Coded Allergies: No Known Drug Allergies (Unverified , 05/10/10) Patient Home Medication List Home Medication List Reviewed: Yes Aspirin (Aspirin) 81 Mg Tab.chew, (Reported) Entered as Reported by: PATEL MORRISON on 07/03/19 172 Azithromycin (Azithromycin) 250 Mg Tablet, 250 MG PO UD Prescribed by: GURWINDER GONZALEZ on 02/16/22 174 Cefuroxime Axetil (Cefuroxime) 500 Mg Tablet, 500 MG PO BID Prescribed by: Nancy Lagos on 08/05/22 1506 Montelukast Sodium (Montelukast Sodium) 10 Mg Tablet, (Reported) Entered as Reported by: PATEL MORRISON on 07/03/19 172 Prednisone (Prednisone) 20 Mg Tab, 20 MG PO DAILY Prescribed by: GURWINDER GONZALEZ on 02/16/22 174 Prednisone (Prednisone) 50 Mg Tab, 50 MG PO DAILY Prescribed by: CED REGAN MD on 07/14/22 1553 Prednisone (Prednisone) 20 Mg Tab, 40 MG PO DAILY Prescribed by: Nancy Lagos on 08/05/22 1506 Review of Systems Review of Systems Constitutional: see HPI Past Ewuabnr-Cgisaa-Nzmohu Hx Patient Social History Tobacco Use?: Yes Tobacco type used: Cigarettes Smoking Status: Current Everyday Smoker Use of E-Cig and/or Vaping Jose E: Current Everyday User Substance use?: No Alcohol Use?: No Pt feels they are or have been: No Immunizations Up To Date Tetanus Booster (TDap): Unknown First/Initial COVID19 Vaccinat: 2020 Second COVID19 Vaccination Marshall: 2020 Third COVID19 Vaccination Date: 2020 Seasonal Allergies Seasonal Allergies: Yes Past Medical History Surgery/Hospitalization HX: COPD. 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 oz. kg; 15.00 BMI Method:Stated General Appearance: Moderate Distress Neck: Normal Inspection, Supple Respiratory: Chest Non Tender, Accessory Muscle Use, Decreased Breath Sounds, Respiratory Distress Cardiovascular: Regular Rate, Rhythm, No Edema, No Gallop, No JVD, No Murmur Extremity: Normal Inspection, Normal Range of Motion Neurologic/Psychiatric: Alert, Oriented x3, Normal Mood/Affect Skin: Normal Color, Warm/Dry Progress/Results/Core Measures Results/Orders Lab Results Laboratory Tests Test 08/05/22 12:57 08/05/22 13:41 08/05/22 14:50 Range/Units White Blood Count 14.3 H 4.3-11.0 10^3/uL Red Blood Count 4.71 3.80-5.11 10^6/uL Hemoglobin 14.5 11.5-16.0 g/dL Hematocrit 43 35-52 % Mean Corpuscular Volume 92 80-99 fL Mean Corpuscular Hemoglobin 31 25-34 pg Mean Corpuscular Hemoglobin Concent 34 32-36 g/dL Red Cell Distribution Width 13.3 10.0-14.5 % Platelet Count 199 130-400 10^3/uL Mean Platelet Volume 9.4 9.0-12.2 fL Immature Granulocyte % (Auto) 1 % Neutrophils (%) (Auto) 81 H 42-75 % Lymphocytes (%) (Auto) 13 12-44 % Monocytes (%) (Auto) 5 0-12 % Eosinophils (%) (Auto) 0 0-10 % Basophils (%) (Auto) 0 0-10 % Neutrophils # (Auto) 11.6 H 1.8-7.8 10^3/uL Lymphocytes # (Auto) 1.8 1.0-4.0 10^3/uL Monocytes # (Auto) 0.7 0.0-1.0 10^3/uL Eosinophils # (Auto) 0.0 0.0-0.3 10^3/uL Basophils # (Auto) 0.0 0.0-0.1 10^3/uL Immature Granulocyte # (Auto) 0.1 0.0-0.1 10^3/uL Neutrophils % (Manual) 84 % Lymphocytes % (Manual) 9 % Monocytes % (Manual) 6 % Band Neutrophils 1 % Percent Immature Platelet Fraction 6.7 0.0-7.6 % Blood Morphology Comment NORMAL Sodium Level 132 L 135-145 MMOL/L Potassium Level 4.5 3.6-5.0 MMOL/L Chloride Level 99 98-107 MMOL/L Carbon Dioxide Level 21 21-32 MMOL/L Anion Gap 12 5-14 MMOL/L Blood Urea Nitrogen 11 7-18 MG/DL Creatinine 0.69 0.60-1.30 MG/DL Estimat Glomerular Filtration Rate 96 BUN/Creatinine Ratio 16 Glucose Level 94 70-105 MG/DL Calcium Level 9.4 8.5-10.1 MG/DL Corrected Calcium 9.2 8.5-10.1 MG/DL Magnesium Level 2.1 1.6-2.4 MG/DL Total Bilirubin 0.5 0.1-1.0 MG/DL Aspartate Amino Transf (AST/SGOT) 20 5-34 U/L Alanine Aminotransferase (ALT/SGPT) 27 0-55 U/L Alkaline Phosphatase 58 40-136 U/L Myoglobin 62.4 10.0-92.0 NG/ML Troponin I < 0.028 <0.028 NG/ML Total Protein 6.8 6.4-8.2 GM/DL Albumin 4.3 3.2-4.5 GM/DL Lipase 79 H 8-78 U/L Prothrombin Time 12.3 12.2-14.7 SEC INR Comment 0.9 0.8-1.4 Activated Partial Thromboplast Time 29 24-35 SEC Blood Gas Puncture Site NA Blood Gas Patient Temperature 36.8 Arterial Blood pH 7.40 7.37-7.43 Arterial Blood Partial Pressure CO2 40 35-45 MMHG Arterial Blood Partial Pressure O2 74 L 79-93 MMHG Arterial Blood HCO3 25 23-27 MMOL/L Arterial Blood Total CO2 25.7 21.0-31.0 MMOL/L Arterial Blood Oxygen Saturation 97 94-100 % Arterial Blood Base Excess 0.3 -2.5-2.5 MMOL/L Will Test YES-POS Blood Gas Ventilator Setting NO Blood Gas Inspired Oxygen 2 L My Orders Orders - NANCY LAGOS APRN Ekg Tracing (08/05/22 12:41) Troponin I [place] (08/05/22 12:49) Chest 1 View, Ap/Pa Only (08/05/22 12:49) Ed Iv/Invasive Line Start (08/05/22 12:49) Monitor-Rhythm Ecg Trace Only (08/05/22 12:49) Cbc With Automated Diff (08/05/22 12:49) Magnesium (08/05/22 12:49) Comprehensive Metabolic Panel (08/05/22 12:49) Myoglobin Serum (08/05/22 12:49) Protime With Inr (08/05/22 12:49) Partial Thromboplastin Time (08/05/22 12:49) O2 (08/05/22 12:49) Lipase (08/05/22 12:49) Aspirin Chewable Tablet (Baby Aspirin Ch (08/05/22 13:00) Albuterol/Ipra Inhalation Soln (Duoneb I (08/05/22 13:00) Methylprednisolone Sod Succ (Solu-Medrol (08/05/22 12:49) Svn Small Volume Nebulizer (08/05/22 12:49) Manual Differential (08/05/22 12:57) Ct Angio Chst/Abd/Pelv W (08/05/22 13:20) Iohexol Injection (Omnipaque 350 Mg/Ml 1 (08/05/22 13:30) Received Contrast (Hold Metformin- Contr (08/05/22 13:30) Ns (Ivpb) (Sodium Chloride 0.9% Ivpb Bag (08/05/22 13:30) Arterial Blood Gas (08/05/22 14:36) Medications Given in ED Current Medications Medications Dose Ordered Sig/Bela Route Start Time Stop Time Status Last Admin Dose Admin Albuterol/ Ipratropium 3 ml ONCE ONCE INH 08/05/22 13:00 08/05/22 13:01 DC 08/05/22 13:15 3 ML Aspirin 324 mg ONCE ONCE PO 08/05/22 13:00 08/05/22 13:01 DC 08/05/22 13:08 324 MG Iohexol 100 ml ONCE ONCE IV 08/05/22 13:30 08/05/22 13:34 DC 08/05/22 13:52 46 ML Sodium Chloride 100 ml ONCE ONCE IV 08/05/22 13:30 08/05/22 13:34 DC 08/05/22 13:53 80 ML Vital Signs/I&O 08/05/22 08/05/22 08/05/22 12:44 13:15 15:21 Temp 36.8 Pulse 113 108 Resp 16 14 B/P (MAP) 125/93 (104) 106/75 Pulse Ox 94 96 100 O2 Delivery Nasal Cannula Nasal Cannula O2 Flow Rate 2.00 2.00 Progress Progress Note #1: Time: 13:10 Progress Note Patient seen and evaluated, sitting on bed, in moderate distress. Based on exam and symptoms, differential diagnosis includes COPD exacerbation, pneumonia, MT, aortic dissection, anxiety. Work-up initiated for shortness of air and chest pain, CBC, CMP, lipase, troponin, EKG, chest x-ray, CT angio chest/abdomen /pelvis. DuoNeb, Solu-Medrol, aspirin ordered. Progress Note #2: Time: 15:00 Progress Note Reassessment completed, patient appears in no acute distress. Instructed to take a baby aspirin daily for mural thrombosis. Informed that prescription for an antibiotic and prednisone was sent to the pharmacy. Return precautions provided. Initial ECG Impression Date: Aug 05, 2022 Initial ECG Impression Time: 12:59 Initial ECG Rate: 93 Initial ECG Rhythm: Normal Sinus Initial ECG Intervals: Normal Initial ECG Comparisson: Unchanged Comment Right bundle branch block EKG : Comment right bundle branch block Diagnostic Imaging Diagonstic Imaging: Xray Plain Films/CT/US/NM/MRI: chest Comments Date of Exam:08/05/22 CHEST 1 VIEW, AP/PA ONLY EXAMINATION: Chest 1 view HISTORY: Chest pain. Shortness of breath. COMPARISON: 07/14/2022. FINDINGS: The lung volumes are normal. No focal consolidation is seen. No large pleural effusion or pneumothorax is seen. The cardiomediastinal silhouette is normal in size and contour. There is calcified aortic atherosclerotic plaque. No acute osseous abnormality is seen. IMPRESSION: 1. No acute pleuroparenchymal process. Dictated by: Dictated on workstation # [id number] Dict: 08/05/22 1325 Trans: 08/05/22 1333 [facility] [id number] Interpreted by: KETAN COYLE DO Electronically signed by: KETAN COYLE DO 08/05/22 1333 Diagonstic Imaging: CT Plain Films/CT/US/NM/MRI: chest, abdomen, pelvis Comments [facility], [place] NAME: KEV ALFARO [facility] REC#: [id number] PT STATUS: REG ER : 1955 PHYSICIAN: NANCY LAGOS APRN ADMIT DATE: 08/05/22/ER Draft Date of Exam:08/05/22 CT ANGIO CHST/ABD/PELV W PROCEDURE: CT angiography of the chest with contrast and CT abdomen and pelvis with contrast. TECHNIQUE: Multiple contiguous axial images were obtained through the chest, abdomen and pelvis after administration of intravenous contrast. 3D MIP reconstructed CT angiography acquisitions of the aorta were then performed. Auto Exposure Controls were utilized during the CT exam to meet ALARA standards for radiation dose reduction. INDICATION: Chest pain and known aneurysm. Comparison is made with prior CT angiogram of the chest performed on 07/03/2019. FINDINGS: CT ANGIOGRAM CHEST: The ascending thoracic aorta is approximately 3.0 cm in diameter. Aortic arch and descending thoracic aorta are normal in caliber. No dissection is identified. Central pulmonary arteries are unremarkable. There is no pericardial or pleural fluid identified. Parenchymal evaluation does show centrilobular emphysematous changes throughout both lungs. There is linear atelectasis or scarring in bilateral lower lobes. No nodule or mass is detected. CT ANGIOGRAM ABDOMEN AND PELVIS: There is aneurysmal dilatation of the infrarenal abdominal aorta. Aneurysm sac dimensions are approximately 3.4 cm AP x 3.7 cm transverse. There is a large amount of mural thrombus. There is no evidence of leakage or rupture. This terminates just above the bifurcation. The iliacs are heavily calcified but nonaneurysmal. The liver demonstrates diffuse low attenuation consistent with hepatic steatosis. Gallbladder is unremarkable. There is no biliary ductal dilatation. The pancreas and spleen are unremarkable. No adrenal mass is identified. Kidneys are unremarkable. There is no hydronephrosis. Bowel loops are normal in caliber. Bladder is unremarkable. There is no ascites. No free air is detected. Bony structures demonstrate grade 1 spondylolisthesis of L5 on S1 with bilateral pars defects. IMPRESSION: 1. Essentially unremarkable CT angiogram of the chest without evidence of aortic aneurysm or dissection. There are centrilobular emphysematous changes throughout both lungs with bibasilar subsegmental atelectasis or scarring. 2. Infrarenal abdominal aortic aneurysm containing a large amount of mural thrombus. Aneurysm sac measurement is 3.4 cm AP x 3.7 cm transverse and terminates above the bifurcation. There is no evidence of leakage or rupture. 3. Hepatic steatosis. 4. No other significant abnormality in the abdomen or pelvis is identified. Dictated on workstation # [id number] Dict: 08/05/22 1408 Trans: 08/05/22 1429 [id number] Interpreted by: NO AHNLEY MD Electronically signed by: Departure Impression Primary Impression: COPD exacerbation Additional Impression: Aortic aneurysm Disposition: HOME, SELF-CARE Condition: Stable Departure-Patient Inst. Decision time for Depature: 15:08 Referrals: ANJELICA SARAVIA MD (PCP/Family) Primary Care Physician Patient Instructions: Abdominal Aortic Aneurysm, COPD Exacerbation, Adult ED Add. Discharge Instructions: Follow-up with Dr. Saravia. You can cancel the scan that is scheduled for next Monday. You will need an ultrasound of the aneurysm in about 6 months. Return for worsening chest pain, a tearing pain in your chest or back, worsening shortness of air, pain or swelling in your calves, or stroke-like symptoms. Start taking a baby aspirin daily. Complete full course of antibiotics, even if you begin to feel better. Take prednisone daily for 4 days. All discharge instructions reviewed with patient and/or family. Voiced understanding. Scripts Prednisone (Prednisone) 20 Mg Tab 40 MG PO DAILY for 4 Days, #4 TAB 0 Refills Prov: NANCY LAGOS APRN 08/05/22 Cefuroxime Axetil (Cefuroxime) 500 Mg Tablet 500 MG PO BID for 7 Days, #14 TAB 0 Refills Prov: NANCY LAGOS APRN 08/05/22 NANCY LAGOS APRN Aug 05, 2022 12:52
[2022-08-05] MEDS ORDERED: ASPIRIN 81 MG CHEW (CHILDREN'S ASA) PO ONE (13:00)
[2022-08-05] MEDS ORDERED: RT-ALBUTEROL/IPRATROPIUM 3 ML (DUONEB) VIAL INH ONE (13:00)
[2022-08-05 13:01] LABS: BASOPHILS % (AUTO) 0 % (0-10); EOSINOPHILS % (AUTO) 0 % (0-10); MEAN PLATELET VOLUME 9.4 fL (9.0-12.2); NEUTROPHILS % (AUTO) 81 % (42-75)
[2022-08-05 13:02] LABS: HEMATOCRIT 43 % (35-52); HEMOGLOBIN 14.5 g/dL (11.5-16.0); LYMPHOCYTES # (AUTO) 1.8 10^3/uL (1.0-4.0); LYMPHOCYTES % (AUTO) 13 % (12-44); MEAN CORPUSCULAR HEMOGLOBIN 31 pg (25-34); MEAN CORPUSCULAR HGB CONC 34 g/dL (32-36); MEAN CORPUSCULAR VOLUME 92 fL (80-99); MONOCYTES # (AUTO) 0.7 10^3/uL (0.0-1.0); MONOCYTES % (AUTO) 5 % (0-12); NEUTROPHILS # (AUTO) 11.6 10^3/uL (1.8-7.8); PLATELET COUNT 199 10^3/uL (130-400); WHITE BLOOD COUNT 14.3 10^3/uL (4.3-11.0)
[2022-08-05 13:09] LABS: ALBUMIN 4.3 GM/DL (3.2-4.5); CHLORIDE 99 MMOL/L (98-107); POTASSIUM 4.5 MMOL/L (3.6-5.0); SODIUM 132 MMOL/L (135-145)
[2022-08-05 13:10] LABS: CALCIUM 9.4 MG/DL (8.5-10.1)
[2022-08-05 13:11] LABS: GLUCOSE 94 MG/DL (70-105); TOTAL PROTEIN 6.8 GM/DL (6.4-8.2)
[2022-08-05 13:12] LABS: CARBON DIOXIDE 21 MMOL/L (21-32)
[2022-08-05 13:13] LABS: BILIRUBIN,TOTAL 0.5 MG/DL (0.1-1.0)
[2022-08-05 13:15] LABS: ALKALINE PHOSPHATASE 58 U/L (40-136); CREATININE SERUM 0.69 MG/DL (0.60-1.30); GFR ESTIMATED 96
[2022-08-05 13:16] LABS: BUN/CREATININE RATIO 16
[2022-08-05 13:18] LABS: ALANINE AMINOTRANSFERASE 27 U/L (0-55); MAGNESIUM 2.1 MG/DL (1.6-2.4)
[2022-08-05 13:19] LABS: LIPASE 79 U/L (8-78)
--- NOTE | 2022-08-05 13:28 | Diagnostic Imaging Report ---
EXAMINATION: Chest 1 view HISTORY: Chest pain. Shortness of breath. COMPARISON: 07/14/2022. FINDINGS: The lung volumes are normal. No focal consolidation is seen. No large pleural effusion or pneumothorax is seen. The cardiomediastinal silhouette is normal in size and contour. There is calcified aortic atherosclerotic plaque. No acute osseous abnormality is seen. IMPRESSION: 1. No acute pleuroparenchymal process. Dictated by: Dictated on workstation # [id number]
[2022-08-05] MEDS ORDERED: NS 100 ML (IVPB) BAG IV ONE (13:30)
[2022-08-05] MEDS ORDERED: HOLD METFORMIN - RECEIVED CONTRAST 20 ML VIAL IV SCH (13:30)
[2022-08-05] MEDS ORDERED: IOHEXOL 350 MG/ML 100 ML (OMNIPAQUE 350) VIAL IV ONE (13:30)
[2022-08-05 13:36] LABS: BAND NEUTROPHILS 1 %; LYMPHOCYTES % (MANUAL) 9 %; MONOCYTES % (MANUAL) 6 %; NEUTROPHILS % (MANUAL) 84 %
[2022-08-05 13:37] LABS: RBC MORPH NORMAL
[2022-08-05 14:18] LABS: INR 0.9 (0.8-1.4); PROTHROMBIN TIME PATIENT 12.3 SEC (12.2-14.7)
--- NOTE | 2022-08-05 14:29 | Diagnostic Imaging Report ---
PROCEDURE: CT angiography of the chest with contrast and CT abdomen and pelvis with contrast. TECHNIQUE: Multiple contiguous axial images were obtained through the chest, abdomen and pelvis after administration of intravenous contrast. 3D MIP reconstructed CT angiography acquisitions of the aorta were then performed. Auto Exposure Controls were utilized during the CT exam to meet ALARA standards for radiation dose reduction. INDICATION: Chest pain and known aneurysm. Comparison is made with prior CT angiogram of the chest performed on 07/03/2019. FINDINGS: CT ANGIOGRAM CHEST: The ascending thoracic aorta is approximately 3.0 cm in diameter. Aortic arch and descending thoracic aorta are normal in caliber. No dissection is identified. Central pulmonary arteries are unremarkable. There is no pericardial or pleural fluid identified. Parenchymal evaluation does show centrilobular emphysematous changes throughout both lungs. There is linear atelectasis or scarring in bilateral lower lobes. No nodule or mass is detected. CT ANGIOGRAM ABDOMEN AND PELVIS: There is aneurysmal dilatation of the infrarenal abdominal aorta. Aneurysm sac dimensions are approximately 3.4 cm AP x 3.7 cm transverse. There is a large amount of mural thrombus. There is no evidence of leakage or rupture. This terminates just above the bifurcation. The iliacs are heavily calcified but nonaneurysmal. The liver demonstrates diffuse low attenuation consistent with hepatic steatosis. Gallbladder is unremarkable. There is no biliary ductal dilatation. The pancreas and spleen are unremarkable. No adrenal mass is identified. Kidneys are unremarkable. There is no hydronephrosis. Bowel loops are normal in caliber. Bladder is unremarkable. There is no ascites. No free air is detected. Bony structures demonstrate grade 1 spondylolisthesis of L5 on S1 with bilateral pars defects. IMPRESSION: 1. Essentially unremarkable CT angiogram of the chest without evidence of aortic aneurysm or dissection. There are centrilobular emphysematous changes throughout both lungs with bibasilar subsegmental atelectasis or scarring. 2. Infrarenal abdominal aortic aneurysm containing a large amount of mural thrombus. Aneurysm sac measurement is 3.4 cm AP x 3.7 cm transverse and terminates above the bifurcation. There is no evidence of leakage or rupture. 3. Hepatic steatosis. 4. No other significant abnormality in the abdomen or pelvis is identified. Dictated by: Dictated on workstation # [id number]
[2022-08-05 14:54] LABS: ABG BASE EXCESS 0.3 MMOL/L (-2.5-2.5); ABG OXYGEN SATURATION 97 % (94-100); ABG PCO2 40 MMHG (35-45); ABG PO2 74 MMHG (79-93); ABG TCO2 25.7 MMOL/L (21.0-31.0)
[2022-08-05 14:57] LABS: ALLENS TEST YES-POS; INSPIRED O2 2 L; PATIENT TEMP 36.8; VENTILATOR NO
[2022-08-05] MEDS ORDERED: CEFU500T63 PO (15:06)
[2022-08-05] MEDS ORDERED: PRD20T PO (15:06)
[2022-08-05 15:21] VITALS: BP 106/75
== END 2022-08-05 15:20 | disposition home or self-care (01) ==
LOC: EDUNIT# 12:37 → ER 12:39
DX: J44.1 Chronic obstructive pulmonary disease with (acute) exacerbation (principal); I71.9 Aortic aneurysm of unspecified site, without rupture; I21.9 Acute myocardial infarction, unspecified; F17.210 Nicotine dependence, cigarettes, uncomplicated
CPT/HCPCS: 36415; 71045; 71275; 74174; 80053; 82805; 83690; 83735; 83874; 84484; 85007; 85027; 85610; 85730; 93041; 94640

== ENCOUNTER 2023-02-21 16:33 | Outpatient (CLI) | payer MEDICARE, OTHER ==
[~2023-02-21] VITALS: Ht 152.4 cm; Wt 35.5 kg
[~2023-02-21 16:33] MED LIST changes: +CEFU500T63 PO; -MONT-40; +MONT-40 PO
[2023-02-21] MEDS ORDERED: ROFL500T PO (17:01)
[2023-02-21] MEDS ORDERED: ACET500C41 PO (17:01)
[2023-02-21] MEDS ORDERED: POTA99CA PO (17:01)
[2023-02-21] MEDS ORDERED: ESCI10TA PO (17:01)
[2023-02-21] MEDS ORDERED: LORA-404 PO (17:01)
[2023-02-21] MEDS ORDERED: RT-ALBUINH INH (17:01)
[2023-02-21] MEDS ORDERED: ZINC50TA51 PO (17:01)
[2023-02-21] MEDS ORDERED: TIOT18CA2 IH (17:01)
[2023-02-21] MEDS ORDERED: ALBU2.5V4 INH (17:01)
[2023-02-21] MEDS ORDERED: PRED5TAB46 PO (17:01)
[2023-02-21] MEDS ORDERED: BUDE10.26 IH (17:01)
[2023-02-21] MEDS ORDERED: MAGN250C PO (17:01)
[2023-02-21] MEDS ORDERED: DRON10CA8 PO (17:01)
== END 2023-02-21 17:13 | disposition home or self-care (01) ==
LOC: PREOP 16:33
PROVIDERS: ATTEND Specialist
DX: Z01.818 Encounter for other preprocedural examination (principal)

== ENCOUNTER 2023-02-24 08:00 | Day surgery (SDC) | payer MEDICARE, OTHER ==
[~2023-02-24] VITALS: Ht 152.4 cm; Wt 35.5 kg
[~2023-02-24 08:00] MED LIST changes: +ACET500C41 PO; +ALBU2.5V4 INH; +BUDE10.26 IH; +DRON10CA8 PO; +ESCI10TA PO; +LORA-404 PO; +MAGN250C PO; +POTA99CA PO; +PRED5TAB46 PO; +ROFL500T PO; +RT-ALBUINH INH; +TIOT18CA2 IH; +ZINC50TA51 PO
[2023-02-24] MEDS ORDERED: MOXIFLOXACIN OPHTH SOLN 5 MG/ML 0.3 ML SYRINGE OP ONE (08:45)
[2023-02-24] MEDS ORDERED: LIDOCAINE PF 1% 2 ML VIAL IR PRN (08:45)
[2023-02-24] MEDS ORDERED: POVIDONE (BETADINE) OPHTH SOLN 5% 30 ML OP ONE (08:45)
[2023-02-24] MEDS ORDERED: TIMOLOL 0.5% (CATARACTS) 0.3 ML BTL OU PRN (08:45)
[2023-02-24 08:55] VITALS: BP 88/55
[2023-02-24] MEDS: TROPICAMIDE 1% OPH SOLN (MYDRIACYL) 15 ML BTL OP SCH ×3 (08:57→09:07)
[2023-02-24] MEDS: TETRACAINE 0.5% OPHTH SOLN 4 ML BTL (SINGLE DOSE ONLY) OU PRN ×3 (08:57→09:07)
[2023-02-24] MEDS: PHENYLEPHRINE 10% OPHTH (NEO-SYN) 5 ML BTL OU SCH ×3 (08:57→09:07)
--- NOTE | 2023-02-24 09:29 | Ophthalmologist Pre-Op Note ---
Pre-Operative Progress Note H&P Reviewed The H&P was reviewed, patient examined and no changes noted. Date H&P Reviewed: Feb 24, 2023 Time H&P Reviewed: 09:28 Pre-Op Dx Cataract, Left Eye ARSEN GLASER MD Feb 24, 2023 09:29
--- NOTE | 2023-02-24 09:50 | Ophthalmology Operative Report ---
Cataract removal/placement IOL PREOPERATIVE DIAGNOSIS: Cataract Left Eye POSTOPERATIVE DIAGNOSIS: Cataract Left Eye PROCEDURE: Cataract removal and placement of posterior chamber implant, left eye SURGEON: Ivan Glaser ANESTHESIA: Topical with sedation COMPLICATIONS: None ESTIMATED BLOOD LOSS: Minimal DESCRIPTION OF PROCEDURE: After proper informed consent was obtained, the patient, a 67 female, was taken to the Operating Room and the left eye was anesthetized with tetracaine. The left eye was then prepped and draped in the usual manner. A wire lid speculum was placed. A paracentesis was made at the left hand position. Preservative free lidocaine was injected into the anterior chamber followed by viscoelastic. A clear corneal incision was made in the temporal position. A capsulorrhexis was preformed and the central nuclear and cortical material were removed. The posterior capsule was polished and an Jt 25.5 AU00T0 was placed into the capsular bag. The residual viscoelastic was aspirated and balanced saline solution was injected into the anterior chamber. Moxifloxacin was injected into the anterior chamber. The wound was checked and found to be water tight. The patient tolerated the procedure well without complications. IVAN GLASER MD Feb 24, 2023 09:50
[2023-02-24 09:55] VITALS: BP 102/58
--- NOTE | 2023-02-24 13:55 | Anesthesia-General Post-Op ---
MAC Patient Condition Mental Status/LOC: Same as Preop Cardiovascular: Satisfactory Nausea/Vomiting: Absent Respiratory: Satisfactory Pain: Controlled Complications: Absent Post Op Complications Complications None Follow Up Care/Instructions Patient Instructions None needed. Anesthesiology Discharge Order Discharge Order Patient is doing well, no complaints, stable vital signs, no apparent adverse anesthesia problems. No complications reported per nursing. HAILE LEWIS CRNA Feb 24, 2023 13:55
== END 2023-02-24 09:58 | disposition home or self-care (01) ==
LOC: SDC 08:00
PROVIDERS: ATTEND Specialist
DX: H25.9 Unspecified age-related cataract (principal); F17.200 Nicotine dependence, unspecified, uncomplicated
CPT/HCPCS: 66984; V2632

== ENCOUNTER 2023-03-06 11:53 | Outpatient (CLI) | payer MEDICARE, OTHER ==
[~2023-03-06] VITALS: Ht 152 cm; Wt 35.5 kg
== END 2023-03-09 17:01 | disposition home or self-care (01) ==
LOC: PREOP 11:53
PROVIDERS: ATTEND Specialist
DX: Z01.818 Encounter for other preprocedural examination (principal)

== ENCOUNTER 2023-03-10 08:07 | Day surgery (SDC) | payer MEDICARE, OTHER ==
[~2023-03-10] VITALS: Ht 152 cm; Wt 35.5 kg
[2023-03-10] MEDS ORDERED: MIDAZOLAM INJ 2 MG/2 ML VIAL ONE (08:13)
[2023-03-10] MEDS ORDERED: LIDOCAINE PF 1% 2 ML VIAL IR PRN (08:15)
[2023-03-10] MEDS ORDERED: POVIDONE IODINE OPHTH SOLN 5% 30 ML OP ONE (08:15)
[2023-03-10] MEDS ORDERED: TIMOLOL 0.5% (CATARACTS) 0.3 ML BTL OU PRN (08:15)
[2023-03-10] MEDS ORDERED: MOXIFLOXACIN OPHTH SOLN 5 MG/ML 0.3 ML SYRINGE OP ONE (08:15)
[2023-03-10] MEDS: TETRACAINE 0.5% OPHTH SOLN 4 ML BTL (SINGLE DOSE ONLY) OU PRN ×4 (08:20→08:36)
[2023-03-10 08:24] VITALS: BP 97/56
[2023-03-10] MEDS: PHENYLEPHRINE 10% OPHTH SOLN 5 ML BTL OU SCH ×3 (08:26→08:36)
[2023-03-10] MEDS: TROPICAMIDE 1% OPH SOLN (MYDRIACYL) 15 ML BTL OP SCH ×3 (08:26→08:36)
--- NOTE | 2023-03-10 09:04 | Ophthalmologist Pre-Op Note ---
Pre-Operative Progress Note H&P Reviewed The H&P was reviewed, patient examined and no changes noted. Date H&P Reviewed: Mar 10, 2023 Time H&P Reviewed: 09:04 Pre-Op Dx Cataract, Right Eye ARSEN GLASER MD Mar 10, 2023 09:04
--- NOTE | 2023-03-10 09:26 | Ophthalmology Operative Report ---
Cataract removal/placement IOL PREOPERATIVE DIAGNOSIS: Cataract Right Eye POSTOPERATIVE DIAGNOSIS: Cataract Right Eye PROCEDURE: Cataract removal and placement of posterior chamber implant, right eye SURGEON: Ivan Glaser ANESTHESIA: Topical with sedation COMPLICATIONS: None ESTIMATED BLOOD LOSS: Minimal DESCRIPTION OF PROCEDURE: After proper informed consent was obtained, the patient, a 67 female, was taken to the Operating Room and the right eye was anesthetized with tetracaine. The right eye was then prepped and draped in the usual manner. A wire lid speculum was placed. A paracentesis was made at the left hand position. Preservative free lidocaine was injected into the anterior chamber followed by viscoelastic. A clear corneal incision was made in the temporal position. A capsulorrhexis was preformed and the central nuclear and cortical material were removed. The posterior capsule was polished and Jt 25.0 AU00T0 IOL was placed into the capsular bag. The residual viscoelastic was aspirated and balanced saline solution was injected into the anterior chamber. Moxifloxacin was injected into the anterior chamber. The wound was checked and found to be water tight. The patient tolerated the procedure well without complications. IVAN GLASER MD Mar 10, 2023 09:26
[2023-03-10 09:34] VITALS: BP 106/60
--- NOTE | 2023-03-10 11:20 | Anesthesia-General Post-Op ---
MAC Patient Condition Mental Status/LOC: Same as Preop Cardiovascular: Satisfactory Nausea/Vomiting: Absent Respiratory: Satisfactory Pain: Controlled Complications: Absent Post Op Complications Complications None Follow Up Care/Instructions Patient Instructions None needed. Anesthesiology Discharge Order Discharge Order Patient is doing well, no complaints, stable vital signs, no apparent adverse anesthesia problems. No complications reported per nursing. CAROLE LEVINE CRNA Mar 10, 2023 11:20
== END 2023-03-10 09:35 | disposition home or self-care (01) ==
LOC: SDC 08:07
PROVIDERS: ATTEND Specialist
DX: H25.9 Unspecified age-related cataract (principal); F17.200 Nicotine dependence, unspecified, uncomplicated
CPT/HCPCS: 66984; V2632

== ENCOUNTER 2023-05-17 06:14 | Outpatient (CLI) | payer MEDICARE, OTHER ==
[~2023-05-17] VITALS: Ht 152.4 cm; Wt 34.7 kg
[2023-05-17] MEDS ORDERED: ASPI-999 PO (09:51)
== END 2023-05-17 10:03 | disposition home or self-care (01) ==
LOC: PREOP 06:14
PROVIDERS: ATTEND Surgery
DX: Z01.818 Encounter for other preprocedural examination (principal)

== ENCOUNTER 2023-05-22 08:54 | Day surgery (SDC) | payer MEDICARE, OTHER ==
[2023-05-22] VITALS (8 sets, daily range): BP systolic 72–94; BP diastolic 42–58
[~2023-05-22] VITALS: Ht 152.4 cm; Wt 34.7 kg
[~2023-05-22 08:54] MED LIST changes: +ASPI-999 PO
[2023-05-22] MEDS ORDERED: LACTATED RINGERS 1,000 ML 1,000 ML IV STA (09:18)
--- NOTE | 2023-05-22 09:49 | Progress Note-Pre Operative ---
Pre-Operative Progress Note Date of Available H&P: May 11, 2023 Date H&P Reviewed: May 22, 2023 Time H&P Reviewed: 09:47 History & Physical: H&P Reviewed, Patient Examed, No changes noted Pre-Operative Diagnosis: Screening, change in bowel habits ALFIE GUSTAFSON DO May 22, 2023 09:48
--- NOTE | 2023-05-22 11:37 | Anesthesia-General Post-Op ---
MAC Patient Condition Mental Status/LOC: Same as Preop Cardiovascular: Satisfactory Nausea/Vomiting: Absent Respiratory: Satisfactory Pain: Controlled Complications: Absent Post Op Complications Complications None Follow Up Care/Instructions Patient Instructions None needed. Anesthesiology Discharge Order Discharge Order Patient is doing well, no complaints, stable vital signs, no apparent adverse anesthesia problems. No complications reported per nursing. HAILE LEWIS CRNA May 22, 2023 11:37
--- NOTE | 2023-05-22 11:38 | Progress Note-Post Operative ---
Post-Operative Progess Note Surgeon (s)/Sap Project Manager (s) Surgeon ALFIE GUSTAFSON DO Sap Project Manager: JACKELYN GatesII Pre-Operative Diagnosis Screening, change in bowel habits Post-Operative Diagnosis Polyps Int hemorrhoids Procedure & Operative Findings Date of Procedure 05/22/23 Procedure Performed/Findings Colonoscopy with snare polypectomy PROCEDURE NOTE: After informed consent was obtained, the patient was brought to the endoscopy suite, placed in bed in left lateral decubitus position. She was administered IV sedation by the EXTRACTOR OPERATOR who then monitored her vitals the entire time, heart rate, blood pressure and pulse ox and the scope was inserted, pushed all the way to about 150 cm and pushed into the cecum, took a picture of appendiceal orifice and noted the ileocecal valve. Then slowly withdrew the scope insufflating to look circumferentially at the velásquez starting in the cecum and up the ascending colon. I found 3 large polyps here and used the snare with heat to remove them. Next, continued to the hepatic flexure, then down the transverse colon where I found another large polyp; also removed with snare. To the splenic flexure, into the descending colon, down into the sigmoid and then into the rectal vault. I retroflexed the scope and took a picture of the internal hemorrhoids. The patient tolerated the procedure. She was recovered in endoscopy suite. Recommended for repeat colonoscopy in 3-5 years. Anesthesia Type IV sedation by EXTRACTOR OPERATOR Estimated Blood Loss Estimated blood loss (mL): scant Specimens/Packing Specimens Removed asc colon polyp x 3 transverse colon polyp ALFIE GUSTAFSON DO May 22, 2023 11:38
--- NOTE | 2023-05-22 11:39 | Endoscopy Discharge Instruct ---
Endo Procedure/Findings Findings 1.: Polyp 2.: Internal Hemorrhoids Discharge Instructions - Activity: You might feel a little sleepy until tomorrow. This is due to the medicine you received to relax you. Until tomorrow, you should: NOT drive a car, operate machinery or power tools. NOT drink any alcoholic beverages. NOT make any important decisions or sign importortant papers. Do not return to work until tomorrow, unless otherwise instructed. Resume previous activities tomorrow. Diet: Start by taking liquids. If you tolerate liquids, advance to solid food. 1.: Colonscopy in 3 years, Colonscopy in 5 years Notify Physician - If you experience excessive bleeding, unusual abdominal pain, fever, or chest pain, contact your doctor immediately. Follow-Up: Other Follow up in my office in one week ALFIE GUSTAFSON DO May 22, 2023 11:39
== END 2023-05-22 12:40 | disposition home or self-care (01) ==
LOC: ENDO 08:54
PROVIDERS: ATTEND Surgery
DX: D12.2 Benign neoplasm of ascending colon (principal); D12.3 Benign neoplasm of transverse colon; K64.8 Other hemorrhoids; J44.9 Chronic obstructive pulmonary disease, unspecified; Z87.891 Personal history of nicotine dependence